=== PATIENT | female | born 1975 | race African-American/Black ===

== ENCOUNTER 2021-02-01 02:30 | Emergency (ER) | payer BC, OTHER ==
[~2021-02-01] VITALS: Ht 167.6 cm; Wt 90.4 kg
[~2021-02-01 02:30] MED LIST: IBUP400T18 PO
[2021-02-01] MEDS ORDERED: KETOROLAC 30 MG/ML VIAL. ONE (03:14)
[2021-02-01] MEDS ORDERED: CONTRAST GIVEN. MC PRN (03:15)
[2021-02-01] MEDS ORDERED: IOHEXOL 300 MG/ML 75 ML VIAL. IV ONE (03:15)
[2021-02-01] MEDS ORDERED: KETOROLAC 30 MG/ML VIAL. IVP ONE (03:15)
--- NOTE | 2021-02-01 03:15 | PHYS DOC ---
Past History Past Medical History: No Pertinent History Past Surgical History: Other Alcohol Use: None Drug Use: None General Adult EDM: Chief Complaint: ABDOMINAL PAIN HPI: HPI: Patient is a 45-year-old female coming in for 2 hours of periumbilical abdominal pain. She was sitting in bed watching movies and the pain started. Last p.o. intake was chips and sauce about 1 hour before. Denies any nausea vomiting, patient states she thought it might be gas pain and try to use the restroom has a small bowel movements without any change in the pain. It is not worse with movement. No history of abdominal surgeries. Denies any changes with urination. LMP 2 weeks ago. Review of Systems: Review of Systems: All other systems within normal limits except for as noted in the HPI Allergies: Allergies: Allergies Coded Allergies Type Severity Reaction Last Updated Verified No Known Drug Allergies 02/01/21 No Physical Exam: PE: Constitutional: Well developed, well nourished, no acute distress, non-toxic appearance. [] HENT: Normocephalic, atraumatic, bilateral external ears normal, nose normal. [] Eyes: PERRLA, conjunctiva normal, no discharge. [] Neck: No rigidity, supple, no stridor. [] Cardiovascular: Regular rate and rhythm, brisk cap refill [] Lungs & Thorax: Non labored symmetric respirations, no tachypnea or respiratory distress [] Abdomen: Soft, nondistended, periumbilical tenderness without guarding. Skin: Warm, dry, no erythema, no rash. [] Back: Unremarkable Extremities: No deformities, range of motion grossly intact, no lower extremity edema [] Neurologic: Alert and oriented X 3, no focal deficits noted. [] Psychologic: Affect normal, judgement normal, mood normal. [] Current Patient Data: Labs: Laboratory Tests Test 02/01/21 03:06 POC Urine HCG, Qualitative hcg negative (Negative) Vital Signs: Vital Signs Date Time Temp Pulse Resp B/P (MAP) Pulse Ox O2 Delivery O2 Flow Rate FiO2 02/01/21 02:59 98.1 82 20 145/77 (99) 99 Room Air EKG: EKG: [] Radiology/Procedures: Radiology/Procedures: [address] [address] IMAGING REPORT Signed PATIENT: LEXUS GABRIEL ACCOUNT: [id number] : 1975 LOCATION: ER AGE: 45 SEX: F EXAM STATUS: REG ER ORD. PHYSICIAN: KEYONNA ARELLANO MD REASON: OMNI 300,75ML IV. Periumbilical pain PROCEDURE: CT ABD PELV W/ IV CONTRST ONLY INDICATION: Reason: OMNI 300,75ML IV. Periumbilical pain / Spl. Instructions: / History: COMPARISON: None. TECHNIQUE: Axial CT images were obtained through the abdomen and pelvis with intravenous contrast. One or more of the following individualized dose reduction techniques were utilized for this examination: 1. Automated exposure control; 2. Adjustment of the mA and/or kV according to patient size; 3. Use of iterative reconstruction technique. FINDINGS: Large hiatal hernia is partially seen with dilated stomach seen both above and below the diaphragm. Adjacent opacity at left lung base commonly from atelectasis given the adjacent hernia sac. Vascular: No abdominal aortic aneurysm. Hepatobiliary: Liver is low density which can be seen with fatty infiltration. Gallbladder is largely contracted. Pancreas: No peripancreatic edema. Spleen: Spleen unremarkable. Renal/Bladder: Urinary bladder is distended at time of exam. Mild prominence of left extrarenal pelvis. There is a couple of subcentimeter low-density lesions of the right kidney which are too small to characterize but a common finding. Mass at the left side of the uterus measuring up to 53 mm. Nonspecific but most common cause would include uterine fibroid. At the left vaginal region there is a fluid density structure seen measuring 36 x 23 mm. Gastrointestinal: Colonic diverticulosis. The appendix is seen within the right lower quadrant measuring up to about 13 mm. Wall thickening at the cecal base. There is suspected early haziness to the adjacent fat at the appendix. Mild fullness of the left adnexa. Left ovarian lesion not excluded. Degenerative changes the spine with multilevel central canal and neural foraminal stenosis with mild scoliotic curvature. Degenerative changes the hips. Degenerative changes of the sacroiliac joints. Calcification or high density cyst in the vaginal region. IMPRESSION: * Dilated appendix with some mild haziness to the adjacent fat. This is concerning for acute appendicitis. Given the degree of distention superimposed cause such as mucocele is not excluded. * Large hiatal hernia is identified with fluid and air dilation of the stomach both above and below the diaphragm. Given the degree of dilatation would correlate with symptoms since an obstructive process at this level is not excluded. * Mass at the left-side the uterus most commonly from fibroid. * Within the left vaginal region there is a fluid density structure identified. Could be secondary to a cyst within the area but would correlate with symptoms to ensure that there is not infectious etiology such as abscess. Electronically signed by: Michelle Pena MD (02/01/2021 4:31 AM) DESKTOP- [id number] DICTATED AND SIGNED BY: MICHELLE PENA MD DATE: 02/01/21419 CC: KEYONNA ARELLANO MD; PCP,NO ~MTH0 0 [] Heart Score: C/O Chest Pain: No Risk Factors: Risk Factors: DM, Current or recent (<one month) smoker, HTN, HLP, family history of CAD, obesity. Risk Scores: Score 0 - 3: 2.5% MACE over next 6 weeks - Discharge Home Score 4 - 6: 20.3% MACE over next 6 weeks - Admit for Clinical Observation Score 7 - 10: 72.7% MACE over next 6 weeks - Early Invasive Strategies Course & Med Decision Making: Course & Med Decision Making Pertinent Labs and Imaging studies reviewed. (See chart for details) Consult placed to Dr. River and Dr. Hudson at [facility] for continuation of patient care [] Karime Disclaimer: Karime Disclaimer: This electronic medical record was generated, in whole or in part, using a voice recognition dictation system. Departure Departure: Impression: Primary Impression: Appendicitis Disposition: 02 SHORT TERM HOSPITAL Condition: STABLE Referrals: PCP,NO (PCP) KEYONNA ARELLANO MD Feb 01, 2021 03:15
[2021-02-01 03:50] LABS: CALCIUM 8.6 mg/dL (8.5-10.1); CREATININE 0.8 mg/dL (0.6-1.0); GFR 93.4; POTASSIUM 3.4 mmol/L (3.5-5.1)
[2021-02-01 03:53] LABS: BILIRUBIN,URINE NEG (NEG); CLARITY,URINE CLEAR; COLOR,URINE YELLOW; GLUCOSE,URINE NEG (NEG)
[2021-02-01 03:54] LABS: BACTERIA,URINE 0 /HPF (0-FEW); NITRITE,URINE NEG (NEG); RBC,URINE 0 /HPF (0-2); SQUAMOUS EPITHELIAL CELL,UR OCC /LPF; UROBILINOGEN,URINE 0.2 mg/dL (0.2 mg/dL); WBC,URINE OCC /HPF (0-4)
[2021-02-01 03:56] LABS: ALBUMIN 3.6 g/dL (3.4-5.0); ALBUMIN/GLOBULIN RATIO 0.9 (1.0-1.7); TOTAL BILIRUBIN 0.3 mg/dL (0.2-1.0); TOTAL PROTEIN 7.6 g/dL (6.4-8.2)
[2021-02-01] MEDS ORDERED: LIDO:MAALOX 1:1 20 ML SINGLE DOSE. PO ONE (04:15)
[2021-02-01 04:22] LABS: BASO # 0.1 x10^3/uL (0.0-0.2); BASO % 1 % (0-3); EOS % 0 % (0-3); HEMATOCRIT 29.9 % (36.0-47.0); HEMOGLOBIN 9.3 g/dL (12.0-15.5); LYMPH # 1.2 x10^3/uL (1.0-4.8); LYMPH % 8 % (24-48); MEAN CORPUSCULAR HEMOGLOBIN 27 pg (25-35); MEAN CORPUSCULAR HGB CONC 31 g/dL (31-37); MEAN CORPUSCULAR VOLUME 86 fL (79-100); MONO # 1.1 x10^3/uL (0.0-1.1); MONO % 8 % (0-9); NEUT # 11.4 x10^3uL (1.8-7.7); NEUT % 83 % (31-73); PLATELET COUNT 434 x10^3/uL (140-400); RED BLOOD COUNT 3.49 x10^6/uL (3.50-5.40); WHITE BLOOD COUNT 13.7 x10^3/uL (4.0-11.0)
--- NOTE | 2021-02-01 04:34 | RAD ---
INDICATION: Reason: OMNI 300,75ML IV. Periumbilical pain / Spl. Instructions: / History: COMPARISON: None. TECHNIQUE: Axial CT images were obtained through the abdomen and pelvis with intravenous contrast. One or more of the following individualized dose reduction techniques were utilized for this examinat ion: 1. Automated exposure control; 2. Adjustment of the mA and/or kV according to patient size; 3 . Use of iterative reconstruction technique. FINDINGS: Large hiatal hernia is partially seen with dilated stomach seen both above and below the diaphragm. A djacent opacity at left lung base commonly from atelectasis given the adjacent hernia sac. Vascular: No abdominal aortic aneurysm. Hepatobiliary: Liver is low density which can be seen with fatty infiltration. Gallbladder is largely contracted. Pancreas: No peripancreatic edema. Spleen: Spleen unremarkable. Renal/Bladder: Urinary bladder is distended at time of exam. Mild prominence of left extrarenal pelvi s. There is a couple of subcentimeter low-density lesions of the right kidney which are too small to characterize but a common finding. Mass at the left side of the uterus measuring up to 53 mm. Nonspecific but most common cause would in clude uterine fibroid. At the left vaginal region there is a fluid density structure seen measuring 36 x 23 mm. Gastrointestinal: Colonic diverticulosis. The appendix is seen within the right lower quadrant measur ing up to about 13 mm. Wall thickening at the cecal base. There is suspected early haziness to the ad jacent fat at the appendix. Mild fullness of the left adnexa. Left ovarian lesion not excluded. Degenerative changes the spine with multilevel central canal and neural foraminal stenosis with mild scoliotic curvature. Degenerative changes the hips. Degenerative changes of the sacroiliac joints. Calcification or high density cyst in the vaginal region. IMPRESSION: * Dilated appendix with some mild haziness to the adjacent fat. This is concerning for acute append icitis. Given the degree of distention superimposed cause such as mucocele is not excluded. * Large hiatal hernia is identified with fluid and air dilation of the stomach both above and below the diaphragm. Given the degree of dilatation would correlate with symptoms since an obstructive proc ess at this level is not excluded. * Mass at the left-side the uterus most commonly from fibroid. * Within the left vaginal region there is a fluid density structure identified. Could be secondary t o a cyst within the area but would correlate with symptoms to ensure that there is not infectious toy ology such as abscess. Electronically signed by: Valerio Rollins MD (02/01/2021 4:31 AM) DESKTOP-[id number]
[2021-02-01] MEDS ORDERED: IV NORMAL SALINE 50ML 50 ML ONE (06:11)
[2021-02-01 08:14] VITALS: BP 119/65
== END 2021-02-01 09:01 | disposition short-term general hospital (02) ==
LOC: ER 02:30
DX: K37 Unspecified appendicitis (principal); Z20.822 Contact with and (suspected) exposure to COVID-19
CPT/HCPCS: 36415; 74177; 80053; 81001; 81025; 83690; 85025; 87426; 96365; 96375; 99285; C9803; J0694; J1885; J3010; Q9967; U0003